=== PATIENT | female | born 1970 | race Hispanic/Latino ===

== ENCOUNTER → 2020-09-10 | Outpatient (CLI) | payer MEDICAID ==
[~2020-09-10] VITALS: Ht 5.1 cm; Wt 95.3 kg
== END | disposition home or self-care (01) ==
LOC: DTH 13:39
PROVIDERS: ATTEND Surgery
DX: I10 Essential (primary) hypertension (principal); M19.91 Primary osteoarthritis, unspecified site; K21.9 Gastro-esophageal reflux disease without esophagitis; E66.01 Morbid (severe) obesity due to excess calories; E11.9 Type 2 diabetes mellitus without complications; E78.00 Pure hypercholesterolemia, unspecified
CPT/HCPCS: 97802

== ENCOUNTER → 2020-11-04 | Outpatient (CLI) | payer OTHER | END | disposition home or self-care (01) | LOC: EDBD → EDUNIT# 10-21 13:00 → DTH 09:26 | PROVIDERS: ATTEND Surgery | DX: E66.9 Obesity, unspecified (principal) | CPT/HCPCS: 97803 ==

== ENCOUNTER → 2020-11-18 | Outpatient (CLI) | payer OTHER | END | disposition home or self-care (01) | LOC: EDBD → EDUNIT# 09:00 → DTH 09:13 | PROVIDERS: ATTEND Surgery | DX: I10 Essential (primary) hypertension (principal); M19.91 Primary osteoarthritis, unspecified site; K21.9 Gastro-esophageal reflux disease without esophagitis; E66.09 Other obesity due to excess calories; E11.9 Type 2 diabetes mellitus without complications; E78.00 Pure hypercholesterolemia, unspecified | CPT/HCPCS: 97803 ==

== ENCOUNTER → 2021-01-19 | Outpatient (CLI) | payer OTHER | END | disposition home or self-care (01) | LOC: EDBD → EDUNIT# 10:00 → DTH 13:05 | PROVIDERS: ATTEND Surgery | DX: E11.9 Type 2 diabetes mellitus without complications (principal); E78.00 Pure hypercholesterolemia, unspecified; M19.91 Primary osteoarthritis, unspecified site; I10 Essential (primary) hypertension; E66.1 Drug-induced obesity; E66.09 Other obesity due to excess calories | CPT/HCPCS: 97803 ==

== ENCOUNTER 2021-02-02 06:57 | Day surgery (SDC) | payer MEDICAID, OTHER ==
[~2021-02-02] VITALS: Ht 157.5 cm; Wt 94.3 kg
[2021-02-02 07:48] VITALS: BP 134/81
[2021-02-02] MEDS ORDERED: TYLENOL #4 PO (08:13)
[2021-02-02] MEDS ORDERED: LISI10TA24 PO (08:13)
[2021-02-02] MEDS ORDERED: ROSU40TA21 PO (08:13)
[2021-02-02] MEDS ORDERED: VITAD50000 PO (08:13)
[2021-02-02] MEDS ORDERED: OMEP40CA21 PO (08:13)
[2021-02-02] MEDS ORDERED: [UNRECOGNIZED DRUG - MIXTURE] PO (08:13)
[2021-02-02] MEDS ORDERED: 0.9%NACL 1000ML 1,000 ML IV ONE (08:15)
[2021-02-02] MEDS ORDERED: PROPOFOL 10 MG/ML 20ML VIAL IV ONE (08:51)
[2021-02-02] MEDS ORDERED: LIDOCAINE HCL 400MG/20ML VIAL ONE (08:51)
[2021-02-02] MEDS ORDERED: MIDAZOLAM HCL 1 MG/ML 2ML VIAL ONE (08:54)
[2021-02-02 09:05] VITALS: BP 113/75
[2021-02-02 09:10] VITALS: BP 120/77
[2021-02-02 09:15] VITALS: BP 119/77
[2021-02-02 09:20] VITALS: BP 115/72
== END 2021-02-02 09:35 | disposition home or self-care (01) ==
LOC: ENDO 06:57 → DAH 06:57 → ENDO 09:35
PROVIDERS: ATTEND Surgery
DX: K21.9 Gastro-esophageal reflux disease without esophagitis (principal); Z20.822 Contact with and (suspected) exposure to COVID-19; I10 Essential (primary) hypertension; E78.5 Hyperlipidemia, unspecified; E78.00 Pure hypercholesterolemia, unspecified; E11.9 Type 2 diabetes mellitus without complications; E66.09 Other obesity due to excess calories; M19.90 Unspecified osteoarthritis, unspecified site; Z98.890 Other specified postprocedural states; Z90.49 Acquired absence of other specified parts of digestive tract; Z98.891 History of uterine scar from previous surgery
CPT/HCPCS: 43235; 71045; 87635; 93005; A4215 ×2; A4221; A4222; A4223; A4606; A4620; A4663; C9803; J2250; J2704; J3490; J7030